=== PATIENT | female | born 1985 | race American Indian/Alaskan Native ===

== ENCOUNTER 2016-05-15 15:21 | Emergency (ER) | payer OTHER ==
[2016-05-15 17:13] LABS: Bilirubin,Urine NEG (Negative); Blood,Urine NEG (Negative); Ketones,Urine NEG (Negative); Leukocyte Esterase,Urine NEG (Negative); Mucus,Urine FEW /HPF; Nitrite,Urine NEG (Negative); Protein,Urine <15 mg/dL mg/dL (Negative); RBC,Urine < 1.0 /HPF (0.0-6.0)
[2016-05-15 20:31] VITALS: BP 123/73
--- NOTE | 2016-05-15 21:25 | Emergency Department Report ---
HPI - General Chief Complaint: Abdominal Pain Time Seen by Provider: 05/15/16 20:43 - HPI HPI: 30-year-old female presents to ED complaining of lower pelvic pain 2 days. Patient states 2 days ago she began feeling A crack throbbing/cramping type pain in her mid pelvic region. Patient states pain is worse and sometimes when she urinates. Patient denies any burning with urination but states the pain is in her pelvic region when she urinates. Patient in states last menstrual period as 03/27/2016. Patient denies fever/chills/nausea/vomiting/abdominal pain/chest pain dizziness or any other problems. She denies vaginal bleeding, vaginal discharge ED Past Medical Hx - Past Medical History Previous Medical History?: No - Surgical History Past Surgical History?: Yes Hx Appendectomy: Yes Additional Surgical History: Appendectomy - Social History Smoking Status: Never Smoker Substance Use Type: None - Medications Home Medications: Home Medications Medication Instructions Recorded Confirmed Last Taken Type Cyclobenzaprine [Flexeril] 10 mg PO TID PRN #20 tablet 02/13/16 Unknown Rx Naproxen [Naprosyn TAB] 500 mg PO BID #30 tablet 02/13/16 Unknown Rx Acetaminophen [Acetaminophen TAB] 500 mg PO Q6HR #20 tablet 05/15/16 Unknown Rx Pnv95/Ferrous Fumarate/FA 1 each PO DAILY #30 tablet 05/15/16 Unknown Rx [ Formula Tablet] ED Review of Systems ROS: Stated complaint: ABD PAIN Other details as noted in HPI Constitutional: denies: chills, fever Eyes: denies: eye pain, eye discharge, vision change ENT: denies: ear pain, throat pain Respiratory: denies: cough, shortness of breath, wheezing Cardiovascular: denies: chest pain, palpitations Endocrine: no symptoms reported Gastrointestinal: denies: abdominal pain, nausea, vomiting, diarrhea Genitourinary: frequency. denies: urgency, dysuria, discharge Musculoskeletal: denies: back pain, joint swelling, arthralgia Skin: denies: rash, lesions Neurological: denies: headache, weakness, numbness, paresthesias, confusion, abnormal gait Psychiatric: denies: anxiety, depression Hematological/Lymphatic: denies: easy bleeding, easy bruising Physical Exam - Physical Exam Vital Signs: Vital Signs 05/15/16 05/15/16 15:51 20:30 Temperature 98.9 F 97.8 F Pulse Rate 12 L 91 H Respiratory 18 20 Rate Blood Pressure 133/78 Blood Pressure 123/73 [Left] O2 Sat by Pulse 100 98 Oximetry Physical Exam: GENERAL: Alert and oriented x3, no apparent distress, Normal Gait, atraumatic. HEAD: Head is normocephalic and a-traumatic. EYES: Extra ocular muscles are intact. Pupils are equal, round, and reactive to light and accommodation. NECK: Supple. Non edematous, No carotid bruits. No lymphadenopathy or thyromegaly. LUNGS: Symetrical with respiration, No wheezing, no rales or crackles, CTAB. HEART: S1, S2 present, regular rate and rhythm without murmur, no rubs, no gallops. ABDOMEN: No organomegaly was noted,Positive bowel sounds, soft, and non- distended. . Nontender to palpation on all Quadrants, NO CVA tenderness. EXTREMITIES/MUSCULOSKELETAL: No cyanosis, clubbing, rash, lesions or edema. Full ROM bilaterally. UE/LE Pulses 2+ bilaterally. NEUROLOGIC: No focal Deficit, Cranial nerves II through XII are grossly intact. No loss of sensation, PSYCHIATRIC: Mood is congruent with affect, denies suicidal or homicidal ideations. SKIN: Warm and dry, No lesions, No ulceration or induration present. ED Course Vital Signs 05/15/16 05/15/16 15:51 20:30 Temperature 98.9 F 97.8 F Pulse Rate 12 L 91 H Respiratory 18 20 Rate Blood Pressure 133/78 Blood Pressure 123/73 [Left] O2 Sat by Pulse 100 98 Oximetry ED Medical Decision Making - Medical Decision Making 30-year-old female presents with a intrauterine . ED course: Urinalysis negative. UPT positive. Beta quant ordered. Ultrasound ordered. Ultrasound shows 2 cm right ovarian cyst. Intrauterine gestational sac identified. No pole identified at this time. Discussed findings with patient. Discussed a possibility of molar Based on last menstrual period of , estimated gestational age should be approximately 7 weeks. Discussed with patient to follow up with her OB doctor. referrals given. Patient states she understands and will make an appointment to the OB doctor to be seen in 2-3 days. Discussed daily vitamins. Discussed increase fluids. Discuss signs and symptoms of . Vital signs are stable. Patient is in no acute respiratory distress. Critical care attestation.: If time is entered above; I have spent that time in minutes in the direct care of this critically ill patient, excluding procedure time. ED Disposition Clinical Impression: IUP (intrauterine ), incidental, Molar , Right ovarian cyst Disposition: DISCHARGED TO HOME OR SELFCARE Is pt being admited?: No Does the pt Need Aspirin: No Condition: Stable Instructions: (ED), Abdominal Pain (ED), Abdominal Pain in (ED), Ovarian Cyst (ED) Additional Instructions: Follow-up with her [employer] in 2-3 days for repeat beta quantitative Follow-up 1-2 weeks for repeat ultrasound. She started experiencing severe pelvic pain Or vaginal bleeding return to the ED. Prescriptions: Acetaminophen [Acetaminophen TAB] 500 mg PO Q6HR #20 tablet Pnv95/Ferrous Fumarate/FA [ Formula Tablet] 1 each PO DAILY #30 tablet Referrals: PRIMARY CARE, [Primary Care Provider] - 3-5 Days STEVENSON MARTELL MD [Referring] - 3-5 Days LUCI SANABRIA MD [Staff Physician] - 3-5 Days Forms: Work/School Release Form(ED) Time of Disposition: 23:19
--- NOTE | 2016-05-15 23:14 | Ultrasound Report ---
FINAL REPORT EXAM: US OB \T\lt; = 14 WEEKS FETUS HISTORY: pelvic pain COMPARISON: None available. TECHNIQUE: Several real-time grayscale and color Doppler images were obtained. Transabdominal and transvaginal exam. FINDINGS: Uterus measures 9.1 x 5.3 x 6.6 centimeters. There is an intrauterine gestational sac. Yolk sac is identified. No definite pole at this time. This may relate to early gestational age. The right ovary measures 3.7 x 3.6 x 2.4 centimeters. 2 centimeter right ovarian cystic structure which may reflect corpus luteal cyst. Left ovary measures 2.3 x 2.2 x 1.7 centimeters. There is gross vascular flow to the ovaries. No adnexal mass is demonstrated. No free fluid. IMPRESSION: Intrauterine gestational sac with yolk sac identified. No pole identified at this time which may relate to early gestational age. Blighted ovum cannot be excluded. Correlation with serial beta HCGs and followup exam is suggested. No adnexal mass is demonstrated. 2 centimeter right ovarian cyst which may reflect corpus luteum.
== END 2016-05-15 23:25 | disposition home or self-care (01) ==
LOC: ED 15:21
DX: O02.0 Blighted ovum and nonhydatidiform mole (principal); O08.89 Other complications following an ectopic and molar pregnancy; N83.201 Unspecified ovarian cyst, right side; Z90.49 Acquired absence of other specified parts of digestive tract; Z3A.01 Less than 8 weeks gestation of pregnancy; Z88.6 Allergy status to analgesic agent
CPT/HCPCS: 36415; 76801; 76817; 81001; 81025; 84702

== ENCOUNTER 2017-04-06 15:03 | Emergency (ER) | payer OTHER ==
[2017-04-06 15:10] VITALS: BP 106/71
[2017-04-06 17:32] LABS: Bacteria,Urine 1+ /HPF (Negative); Bilirubin,Urine NEG (Negative); Blood,Urine NEG (Negative); Color,Urine Yellow (Yellow); HCG Qualitative,Urine Negative (Negative); Mucus,Urine FEW /HPF; Nitrite,Urine NEG (Negative); Protein,Urine <15 mg/dL mg/dL (Negative); RBC,Urine < 1.0 /HPF (0.0-6.0); Urobilinogen,Urine < 2.0 mg/dL (<2.0)
[2017-04-06 17:34] LABS: Basophils # (Auto) 0.1 K/mm3 (0.0-0.1); Basophils % (Auto) 1.2 % (0.0-1.8); Eosinophils # (Auto) 0.3 K/mm3 (0.0-0.4); Eosinophils % (Auto) 2.9 % (0.0-4.3); Hemoglobin 13.6 gm/dl (10.1-14.3); Lymphocytes # (Auto) 3.6 K/mm3 (1.2-5.4); Lymphocytes % (Auto) 34.2 % (13.4-35.0); Mean Corpuscular HGB Conc 34 % (30-34); Mean Corpuscular Hemoglobin 31 pg (28-32); Mean Corpuscular Volume 90 fl (79-97); Monocytes # (Auto) 0.7 K/mm3 (0.0-0.8); Monocytes % (Auto) 6.8 % (0.0-7.3); Platelet Count 387 K/mm3 (140-440); Red Blood Count 4.44 M/mm3 (3.65-5.03); Red Cell Distribution Width 13.5 % (13.2-15.2)
[2017-04-06 17:48] LABS: Alanine Aminotransferase 13 units/L (7-56); Albumin 4.5 g/dL (3.9-5); BUN/Creatinine Ratio 18; Blood Urea Nitrogen 9 mg/dL (7-17); Calcium 9.4 mg/dL (8.4-10.2); Hemolysis Index 26
--- NOTE | 2017-04-06 19:03 | Emergency Department Report ---
HPI - General Chief Complaint: Abdominal Pain Time Seen by Provider: 04/06/17 19:00 - HPI HPI: Patient improvement of nausea, back pain for the past 2 weeks. Also complaining of headache and generalized malaise. No fever, no neck pain. ED Past Medical Hx - Past Medical History Previous Medical History?: No - Surgical History Past Surgical History?: Yes Hx Appendectomy: Yes Additional Surgical History: Appendectomy - Social History Smoking Status: Never Smoker Substance Use Type: None - Medications Home Medications: Home Medications Medication Instructions Recorded Confirmed Last Taken Type Cyclobenzaprine [Flexeril] 10 mg PO TID PRN #20 tablet 02/13/16 Unknown Rx Naproxen [Naprosyn TAB] 500 mg PO BID #30 tablet 02/13/16 Unknown Rx Acetaminophen [Acetaminophen TAB] 500 mg PO Q6HR #20 tablet 05/15/16 Unknown Rx Pnv No.95/Ferrous Fum/Folic AC 1 each PO DAILY #30 tablet 05/15/16 Unknown Rx [ Formula Tablet] Dicyclomine [Bentyl] 20 mg PO QID #30 tablet 04/06/17 Unknown Rx ED Review of Systems ROS: Stated complaint: ABD PAIN Other details as noted in HPI Comment: All other systems reviewed and negative Gastrointestinal: nausea Musculoskeletal: back pain Physical Exam - Physical Exam Vital Signs: Vital Signs 04/06/17 15:09 Temperature 98.7 F Pulse Rate 75 Respiratory 18 Rate Blood Pressure 106/71 O2 Sat by Pulse 99 Oximetry Physical Exam: Gen. alert and oriented 3 in no distress Head atraumatic normocephalic Eyes PERR LA EOMI Chest regular rate and rhythm normal S1-S2 lungs clear bilaterally Abdomen soft nondistended Back no point tenderness paravertebral tenderness Neuro no focal deficit. Psych normal mood. ED Course Vital Signs 04/06/17 15:09 Temperature 98.7 F Pulse Rate 75 Respiratory 18 Rate Blood Pressure 106/71 O2 Sat by Pulse 99 Oximetry ED Medical Decision Making - Lab Data Result diagrams: 04/06/17 17:13 04/06/17 17:13 Critical care attestation.: If time is entered above; I have spent that time in minutes in the direct care of this critically ill patient, excluding procedure time. ED Disposition Clinical Impression: Abdominal pain Qualifiers: Abdominal location: generalized Qualified Code(s): R10.84 - Generalized abdominal pain Disposition: DC-01 TO HOME OR SELFCARE Is pt being admited?: No Does the pt Need Aspirin: No Condition: Stable Instructions: Abdominal Pain (ED) Prescriptions: Dicyclomine [Bentyl] 20 mg PO QID #30 tablet Referrals: PRIMARY CARE, [Primary Care Provider] - 3-5 Days
== END 2017-04-06 19:14 | disposition home or self-care (01) ==
LOC: ED 15:03
DX: R10.84 Generalized abdominal pain (principal); R11.0 Nausea; M54.9 Dorsalgia, unspecified; R51 Headache; R53.83 Other fatigue; Z90.49 Acquired absence of other specified parts of digestive tract; Z88.6 Allergy status to analgesic agent
CPT/HCPCS: 36415; 80053; 81001; 81025; 85025; 99283